=== PATIENT | female | born 1950 | race Caucasian/White ===

== ENCOUNTER 2023-08-26 02:14 | Emergency (ER) | payer MEDICARE, SELFPAY ==
[2023-08-26 02:45] VITALS: BP 157/117; PULSE 70; RESP 16; TEMP 36.7; O2SAT 93; BMI 30.9
--- NOTE | 2023-08-26 02:46 | XRR_ITS ---
PROCEDURE INFORMATION: Exam: XR Right Knee Exam date and time: 08/26/2023 3:04 AM Age: 73 years old Clinical indication: Pain; Knee; Right; Additional info: Nontraumatic knee pain TECHNIQUE: Imaging protocol: Radiologic exam of the right knee. Views: 3 views. COMPARISON: No relevant prior studies available. FINDINGS: Bones/joints: Chondrocalcinosis. Joint space narrowing of the medial compartment and the patellofemoral compartment. Soft tissues: Quadriceps enthesophyte. Vasculature: Peripheral arterial vascular calcifications. XR/XR knee RT 3V* [id number] IMPRESSION: 1. Osteoarthritis, moderate. 2. Chondrocalcinosis which can be seen in osteoarthritis, however also can be seen in CPPD. 3. No fracture visualized.
--- NOTE | 2023-08-26 02:47 | ED_ITS ---
HPI - Extremity Injury (Lower) General: Chief Complaint: Extremity Problem,Nontraumatic Stated Complaint: right knee pain Time Seen by Provider: 08/26/23 02:43 History of Present Illness: 73-year-old female who presents the [facility] room with knee pain that started a couple days ago. No known injury. She says it hurts all the time. Hurts to walk. Hurts when she lays down. She is taken ibuprofen and took an old 7.5 hydrocodone that she had from hip surgery and nothing has helped. No redness. No swelling. No fevers. Review of Systems Narrative: Constitutional symptoms: Negative except as documented in HPI. Skin symptoms: Negative except as documented in HPI. Eye symptoms: Negative except as documented in HPI. ENMT symptoms: Negative except as documented in HPI. Respiratory symptoms: Negative except as documented in HPI. Cardiovascular symptoms: Negative except as documented in HPI. Gastrointestinal symptoms: Negative except as documented in HPI. Genitourinary symptoms: Negative except as documented in HPI. Musculoskeletal symptoms: Negative except as documented in HPI. Neurologic symptoms: Negative except as documented in HPI. Psychiatric symptoms: Negative except as documented in HPI. Endocrine symptoms: Negative except as documented in HPI. Physical Exam Narrative: EXAM NARRATIVE: General: Alert, no acute distress. Skin: warm and dry Head: Normocephalic Neck: Trachea midline Eye: Extraocular movements are intact. Ears, nose, mouth and throat: Oral mucosa moist Respiratory: Respirations are non-labored Musculoskeletal: Normal ROM, no deformity, no redness. No swelling. Neurological: Alert and oriented, No focal neurological deficit observed. Psychiatric: Cooperative, appropriate mood & affect. Course Vital Signs: Vital signs: Vital Signs Temperature 98.0 F 08/26/23 02:45 Pulse Rate 70 08/26/23 02:45 Respiratory Rate 18 08/26/23 02:51 Blood Pressure 157/117 08/26/23 02:45 Pulse Oximetry 94 08/26/23 02:51 Oxygen Delivery Me thod Room Air 08/26/23 02:45 MDM - Extremity Injury (Lower) Medical Decision Making X-ray of the right knee: No obvious deformities. No Fractures. Assessment and plan: Knee pain - Discharged home - Discussed plan with patient. Answered any questions. - Evaluation and treatment of this problem were appropriate in the emergency setting. XR interpretation done by ED provider, pending radiology final review Discharge Plan Discharge Patient Disposition: Home Clinical Impression: Acute knee pain Condition: Stable Prescriptions: New prednisone 20 mg tablet 60 mg PO DAILY 5 Days Qty: 15 0RF oxycodone 5 mg tablet 5 mg PO Q8H PRN (Reason: pain) Qty: 20 0RF Discharge Orders: Discharge ED (Routine); Ordered 08/26/23 Ordered By: Jaqui Barry Referrals: Ubaldo Michael, [Physician] - 4-7 days (Please call for an appointment if pain persists) Discharge Diet: Usual diet Discharge Activity: Increase activity as tolerated Patient Instructions: Knee Pain (ED), Opioid Safety, Pain Management Activity Restrictions/Additional Instructions: Thank you for choosing [facility] for your healthcare needs today. Please realize this is an emergency room and that we are providing you with a medical screening exam and this may not be complete and all inclusive of all the testing and or work up that you may need to determine your ailment or severity of your illness. You have been screened and evaluated and felt safe for discharge. Health conditions do change or evolve sometimes and as such it is important that you follow up with your Primary Doctor to be re checked, 3-5 days is a general good time frame for follow up. You are always welcome to return to the ED for re assessment if your symptoms are worsening or you have new concerns Coding Level of Care Code ED [employer] Supervisor for Chari Shah
[2023-08-26 02:51] VITALS: RESP 18; O2SAT 94
[2023-08-26] MEDS: oxyCODONE 5 mg IR Tab/Cap 10 MG PO (02:51)
[2023-08-26] MEDS: dexamethasone 10 mg/mL INJ IM (02:52)
[2023-08-26 04:01] VITALS: PULSE 65; RESP 16; O2SAT 91
== END 2023-08-26 04:03 | disposition home or self-care (01) ==
PROVIDERS: Emergency Provider Emergency Medicine
DX: M25.561 Pain in right knee (principal)
CPT/HCPCS: 73562; 96372; 99284; J1100